=== PATIENT | male | born 2000 | race Caucasian/White ===

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

== ENCOUNTER 2022-10-03 17:38 | Emergency (ER) | payer OTHER ==
[2022-10-03 17:53] VITALS: BP 125/82; PULSE 67
== END 2022-10-03 18:32 | disposition home or self-care (01) ==
LOC: KA.ED 17:38
DX: S60.022A Contusion of left index finger without damage to nail, initial encounter (principal); Z88.0 Allergy status to penicillin; W20.8XXA Other cause of strike by thrown, projected or falling object, initial encounter
CPT/HCPCS: 73140-F1; 99283